=== PATIENT | female | born 1965 | race Two or more races ===

== ENCOUNTER 2025-05-05 12:57 | Emergency (ER) | payer MEDICAID, SELFPAY ==
--- NOTE | ~2025-05-05 | XR_ITS ---
EXAMINATION: XR HAND, RIGHT CLINICAL INFORMATION: right pinky injury. fracture? COMPARISON: None available. TECHNIQUE: PA, lateral, and oblique views of the right hand. FINDINGS: No acute cortical disruption or malalignment. No metallic or radiopaque foreign body. No subcutaneous emphysema. XR/XR hand RT min 3V IMPRESSION: No acute fracture or dislocation. Electronically signed by: Dorian Griffin MD 05/05/2025 01:42 PM EDT
[2025-05-05 13:07] VITALS: BP 205/91; PULSE 84; RESP 16; TEMP 37; O2SAT 99; BMI 24.9
--- NOTE | 2025-05-05 13:11 | ED_ITS ---
HPI - General Adult General Chief complaint: Extremity Problem Stated complaint: pinky inj Time Seen by Provider: 05/05/25 13:54 Source: patient Mode of arrival: ambulatory Limitations: no limitations History of Present Illness ED Provider: Matthew Alejandro HPI narrative: 60 yold female with pmh of DVT on eliquis presents to the ED for right pinky pain for one week. Patient states she hit her finger on the dumpster and ever since it has been bruised and in pain. Patient denies any new trauma, redness, bleeding from any orifices, fever, chills, hotness, or coldness. Related Data Allergies Allergy/AdvReac Type Severity Reaction Status Date / Time No Known Allergies Allergy Verified 05/05/25 13:09 Review of Systems 2 Review of Systems: right pinky pain Yes all other systems are reviewed and are negative [facility] Social History Social History Advance Directives: No Advance Directives Information Provided: Yes Physical Exam ED Vital Signs: Vital Signs - 24 hr 05/05/25 13:07 05/05/25 13:12 Temperature 98.6 F Pulse Rate 84 Respiratory Rate 16 Blood Pressure 205/91 H 162/86 H Pulse Oximetry 99 Oxygen Delivery Method Room Air BMI result Body Mass Index 24.9 Const General: cooperative, healthy appearing, comfortable, no acute distress, well developed, alert, awake and Physically active Orientation/consciousness: patient oriented x3 HENMT Head: Yes normal to inspection, Yes No palpable skull fracture present, Yes normocephalic and Yes atraumatic Eyes General: appearance normal, both eyes and all related structures Neck Neck: Yes normal visual inspection, Yes full ROM, Yes no lymphadenopathy, Yes no meningeal signs, Yes trachea midline, Yes supple, No anterior neck swelling and No tender Chest Chest palpation & inspection: normal inspection of the chest and normal palpation of entire chest wall Resp Effort & Inspection: normal respiratory effort and able to speak in complete sentences Auscultation: clear to auscultation bilaterally Cardio Jugular venous distension: no JVD Heart sounds: S1 normal heart sound present and S2 normal heart sound present GI Inspection: Yes normal to inspection Palpation (GI): Soft to palpation, not firm, nontender, no guarding and not rigid General: Yes no CVA tenderness Back/Spine/Pelvis Back: no CVA tenderness and No back tenderness Skin General skin exam: no rashes or lesions noted, elasticity normal and turgor normal Neuro General: patient oriented x3, gait normal, tone normal, moves all extremities, Normal light touch and pain sensation, no meningeal signs, no focal motor deficits, CN's II-XI intact bilaterally and normal sensation to monofilament Extrem General: Yes normal to inspection, Yes full ROM and Yes capillary refill normal Hand/finger images: 2 1. positive for ecchymosis. negative for crepitus, deformities, redness, pus drainage, or coldness. REst of extremity is normal. Motor, neuro, and vascular exam intact. capillary refill intact. Psych Appearance: grossly normal, well kempt and not disheveled Course Course Course Narrative: RME: 60 yold female presents to the ED for right piinky injury bruising that occurred 1 weeks ago. patient has bruising on ring finger tip. Patient denies any other trauma bruising elsewhere in the body. Patient recently nose with DVT in his on Eliquis. X-ray ordered Medical Decision Making Medical Decision Making MDM Narrative: 60-year-old female presents to ED for fungi bruise after injury and finger on dumpster when week ago with some bruising and pain. Negative for signs of arterial occlusion, compartment syndrome, tenosynovitis, cellulitis, osteomyelitis, necrotizing fasciitis, or any other life-threatening etiology. Initial blood pressure was elevated patient states history of white coat hypertension, to the ED patient was anxious repeat blood pressure significantly improved without any intervention. No indication for cardiac workup, labs, head CT. Not suspecting stroke, ME, or kidney failure. X-ray negative for fracture. Diagnosis contusion. Patient explained worrisome signs informed to return to the ED immediately. Differential Diagnosis Differential Diagnoses: The differential diagnosis associated with the presentation includes (Contusion sprain fracture dislocation) Admission/Observation Consideration of admission/observation: Escalation of care including admission/observation considered Independent Interpretation I performed an independent interpretation of an: Plain X-Ray Radiology Impression Discussion of test interpretation with radiology: I have reviewed the radiologist's reading. Independent Historian Clinical information obtained from an independent historian. History obtained from or confirmed by: Other (patient) Prescription Management I considered prescription management with: Pain Medication Discharge Plan Discharge Clinical Impression: Contusion, Finger sprain Patient Disposition: Home, Self-Care Instructions: Contusion in Adults (ED), Finger Sprain (ED), Bone Bruise (ED) Additional Instructions: X-ray came back negative for fracture. Take [id number] Tylenol for pain relief. Return to the ED immediately for any redness, warmth, coldness, black/blueish discoloration, red streaks, fever, chills, or any other concerning symptoms. Ordering Physician: Matthew Alejandro Date of Service: 05/05/25 Procedure(s): XR hand RT min 3V Accession Number(s): [id number] cc: Matthew Alejandro; Marialuisa Jarvis MD~ Reason for Exam: right pinky injury. fracture? EXAMINATION: XR HAND, RIGHT CLINICAL INFORMATION: right pinky injury. fracture? COMPARISON: None available. TECHNIQUE: PA, lateral, and oblique views of the right hand. FINDINGS: No acute cortical disruption or malalignment. No metallic or radiopaque foreign body. No subcutaneous emphysema. XR/XR hand RT min 3V IMPRESSION: No acute fracture or dislocation. Electronically signed by: Dorian Griffin MD 05/05/2025 01:42 PM EDT Referrals: Marialuisa Jarvis MD [Primary Care Provider, Family Practice] - 2 days Referral Note: Finger sprain contusion Clinical Impression: Contusion; Finger sprain Stand Alone Forms: Work/School Release Discharge Date/Time: 05/05/25 14:26 Print Language: Burkinan
[2025-05-05 13:12] VITALS: BP 162/86
--- OUTSIDE RECORDS SUMMARY | 2025-05-05 17:51 | XMS_ITS | Clinical Summary ---
Author Organization [facility] Address [address] [place] [address] Phone Care Team Providers Care [employer] Helper Name Role Phone Marialuisa Jarvis MD Unavailable [phone] Marialuisa Jarvis MD Primary Care Provider [phone] Encounters Date Type Department Care Team Description 04/18/2025 [facility] RISK SCORES SYSTEM GENERATED External System Generated Encounter [address] [place] [address] Unknown, Unknown, from Last 3 Months Social History Tobacco Use Types Packs/Day Years Used Date Smoking Tobacco: Never Assessed Education Answer Date Recorded Are you interested in more education? Not on lyndsey e 11/15/2022 Are you concerned about learning? Not on file 11/15/2022 No 11/15/2022 No 11/15/2022 Digital Access Answer Date Recorded No 12/16/2022 No 12/16/2022 No 12/16/2022 Reliable internet access at home? Not on file 12/16/2022 Device with a working camera? Not on file Comments Unknown Sex and Gender Information Value Date Recorded Sex Assigned at Not on file Legal Sex Female 9:40 PM EDT Gender Identity Not on file Sexual Orientation Not on file Plan of Treatment Not on file Medical Devices Not on file Insurance [facility] [place] [address] [place] [address] [facility] [facility] Care Teams [employer] Operator Helper Relationship Specialty Start Date End Date Marialuisa Jarvis MD [email or web address] PCP - General Family Medicine 01/16/22 Marialuisa Jarvis MD Primary Care Physician 10/18/17 Additional Source Comments The information contained in this document represents components of the legal health record. It is not the complete legal health record.[facility]
== END 2025-05-05 14:26 | disposition home or self-care (01) ==
PROVIDERS: Emergency Provider Emergency Medicine; PCP Family Medicine
DX: S63.616A Unspecified sprain of right little finger, initial encounter (principal); X58.XXXA Exposure to other specified factors, initial encounter; Y93.9 Activity, unspecified; Y92.9 Unspecified place or not applicable; Y99.8 Other external cause status; Z86.718 Personal history of other venous thrombosis and embolism; Z79.01 Long term (current) use of anticoagulants; Z79.899 Other long term (current) drug therapy
CPT/HCPCS: 73130; 99282; 99283

== ENCOUNTER → 2025-05-05 13:10 | Outpatient (BNV) | payer MEDICAID, SELFPAY | PROVIDERS: Emergency Provider Emergency Medicine; PCP Family Medicine; Visit Provider Radiology Diagnostic Radiology | DX: M79.644 Pain in right finger(s) (principal) | CPT/HCPCS: 73130 ==

== ENCOUNTER 2025-07-12 10:21 | Emergency (ER) | payer MEDICAID, SELFPAY ==
--- NOTE | ~2025-07-12 | CT_ITS ---
EXAMINATION: CT ABDOMEN AND PELVIS WITH CONTRAST CLINICAL INFORMATION: Abdominal bloating COMPARISON: None available. TECHNIQUE: Multidetector volumetric images were obtained from the superior aspect of the liver through the pubic symphysis following administration 85 mL of Omnipaque 350 intravenous contrast. Sagittal and coronal reformatted images were obtained on the technologist's workstation. Oral contrast: No This CT examination was performed using dose optimization techniques as appropriate, variously including the following: *Automated exposure control *Adjustment of mA and/or kV according to patient size (this includes techniques or standardized protocols for targeted exams where dose is matched to indication/reason for exam; i.e. extremities or head) *Use of iterative reconstruction technique FINDINGS: LUNG BASES: Linear scarring or atelectasis is present in the posterior lung bases. LIVER, GALLBLADDER, AND BILIARY TREE: The liver is normal in size, shape, and attenuation. No focal hepatic lesion or biliary ductal dilatation is present. The gallbladder is unremarkable with no evidence of radiopaque gallstones, gallbladder wall thickening, or obvious pericholecystic inflammatory changes. PANCREAS: Unremarkable. SPLEEN: There is a 5 x 10 mm low attenuating lesion involving the anterior superior spleen measures 21 Hounsfield units. ADRENAL GLANDS: Unremarkable. KIDNEYS AND URETERS: The kidneys are normal in size, shape, and attenuation. No hydronephrosis, hydroureter, or calculi seen. No perinephric stranding. BLADDER: Unremarkable. GASTROINTESTINAL TRACT: There is a large amount of ascites. There is a small sliding hiatal hernia involving gastric cardia. Appendix is somewhat obscured but grossly unremarkable. There is stranding of the mesentery anterior and inferior to the central and distal transverse colon. The bowel is decompressed through this segment limiting evaluation for possible thickening. ABDOMINAL WALL: No significant hernia is appreciated. LYMPH NODES: Normal. VASCULAR: Minimal atherosclerotic calcifications are present in the abdominal aorta PELVIC VISCERA: There is a 17 x 26 mm mass in the uterine body likely representing a leiomyoma. The endometrial stripe measures 16 mm versus fluid in the endometrial canal. Ovaries are unremarkable. OSSEOUS STRUCTURES: L4-5 demonstrates disc bulge, endplate sclerosis and osteophytes. No lytic or blastic lesions are identified. CT/CT abdomen pelvis w IV con IMPRESSION: There is a large amount of ascites, the origin is uncertain. The endometrium within the uterus appears prominent measuring up to 16 mm thick. Endometrial hyperplasia, polyp, or carcinoma is not ruled out. There could also be fluid in the endometrial canal. Additionally, there is a 17 x 26 mm mass in the uterine body that likely represents a leiomyoma, other etiologies are not ruled out. There is stranding of the mesentery anterior and inferior to the mid and distal transverse colon. The colon is decompressed in this region limiting evaluation of the bowel wall thickness. Infection, ischemia, inflammatory bowel disease, and neoplasm are not excluded. There is a small sliding hiatal hernia involving gastric cardia. There is a 5 x 10 mm low attenuating lesion in the anterior superior spleen. Most lesions and spleen are nonaggressive. Fleischner guidelines were followed. Electronically signed by: Walter Hampton MD 07/12/2025 03:09 PM PAUL[facility] YAD[facility]
[2025-07-12 10:27] VITALS: BP 180/102; PULSE 107; RESP 18; TEMP 36.3; O2SAT 98; BMI 24.0
--- NOTE | 2025-07-12 10:37 | ED_ITS ---
HPI - General Adult General Chief complaint: General Medical Stated complaint: Bloating In Stomach, Throwing Up, Abd Pain Time Seen by Provider: 07/12/25 14:12 Source: patient and family () Mode of arrival: ambulatory Limitations: no limitations History of Present Illness ED Provider: CRISTAL MOORE PA-C HPI narrative: 60 year old female with recent unprovoked LLE DVT on AC, HLD, hypothyroidism presents to the ED today for evaluation of abdominal bloating x2 weeks. Patient states she was started on Eliquis 2 months ago for a left lower extremity DVT. Approximately 30 days after started Eliquis, she began to develop abdominal bloating/discomfort. She was concerned that this was related to the Eliquis. She saw her PCP who then switched her from Eliquis to Xarelto. She has been taking Xarelto as prescribed since 07/07/2025 without much improvement in her bloating. Reports recent constipation. Admits to small, watery BM yesterday however prior to this had not had a BM in 3 days. Reports history of section x1. No other abdominal surgeries. Denies fever, chills, chest pain, SOB, palpitations, N/V, urinary sx. Related Data Home Medications ?Medication ?Instructions ?Recorded ?Confirmed atorvastatin 80 mg tablet 80 mg PO DAILY 07/13/25 levothyroxine 100 mcg tablet 100 mcg PO QAM 07/13/25 loratadine 10 mg tablet 10 mg PO QAM 07/13/25 rivaroxaban 15 mg tablet (Xarelto) 15 mg PO DAILY 06/21 11/12 triamcinolone acetonide 0.1 % appl topical BID 5 topical cream Previous Rx's ?Medication ?Instructions ?Recorded spironolactone 100 mg tablet 100 mg PO DAILY 14 days # 14 tabs 07/12/25 Allergies Allergy/AdvReac Type Severity Reaction Status Date / Time No Known Allergies Allergy Verified 07/13/25 11:44 Review of Systems 2 Review of Systems: Yes all other systems are reviewed and are negative [facility] Past Medical History Attestation statement: The following information was validated with the patient. Source: old records reviewed and nursing notes reviewed Medical History (Updated 07/13/25 @ 11:47 by Kaitlin Montero CMA) Hypothyroidism Hyperlipidemia Surgical History (Updated 12/24/25 @ 11:47 by Kaitlin Montero CMA) Hx of section Family History Family History (Updated 07/13/25 @ 11:48 by Kaitlin Montero CMA) Mother Diabetes Brother Thyroid cancer Social History Social History (Updated 07/13/25 @ 11:49 by Kaitlin Montero CMA) Household Members: Spouse Housing: Apartment Alcohol intake: former Patient Tobacco Use Status: Former Tobacco user Tobacco use type: Cigarette Years Smoked: 3 Current occupational status: disabled Sexual orientation: Straight/Heterosexual Gender identity: Female Physical Exam ED Vital Signs: Vital Signs - 24 hr 07/12/25 17:05 Temperature 98.2 F Pulse Rate 93 Respiratory Rate 16 Blood Pressure 156/96 H Pulse Oximetry 98 Oxygen Delivery Method Room Air BMI result Body Mass Index 24.0 hypertensive, mildly tachycardic to 107, vitals are otherwise wnl General: Well appearing, in no acute distress. Skin: Warm, dry, intact. No rashes or lesions. Head: Normocephalic, atraumatic. EENT: Hearing is intact b/l. PERRLA. EOM intact. Moist mucous membranes.? Neck: Supple without LAD Cardiac: Chest wall symmetric. RRR Lungs: Normal respiratory effort without accessory muscle use. CTA bilaterally Abdomen: soft, distended, somwhat ascitic appearing abdomen, nontender to palpation, no rebound tenderness or guarding. Active bowel sounds x4. No CVAT bilaterally. Back: No midline spinous or paraspinal tenderness. No step off deformity. Ext: Upper and lower extremities atraumatic, without tenderness, deformity, swelling or erythema. Full ROM throughout Neuro: AOx3. Normal speech. Ambulating with steady gait. Course Course Course Narrative: RmE: 60 yold female on now on xerolto for leg DVT presents to the ED for abdominal pain bloating and distended firm abdomen. patient states she was previously constipated, but that resolved and abdomen is still bloated. Reevaluation(s) Reevaluation #1: 1550 -- CBC without leukocytosis. There is neutrophil predominance. No anemia, H and H stable. Chemistry without acute electrolyte abnormality requiring intervention. No BRENNAN. Random glucose 156, no anion gap. AST/ALT mildly elevated, liver function otherwise WNL. Lipase WNL. Urine without infection. CT abdomen/pelvis showing numerous abnormal findings: I have concern that patient's ascites may be secondary to possible carcinoma. Will reach out to both GI and Gynecology. I suspect patient may require a diagnostic paracentesis. Awaiting response. 1627 -- I spoke with Dr. Draper from GI with recommendation for diagnostic paracentesis with fluid analysis of albumin, cell count and cytology. I also spoke with OBGYN Dr. Ltaif who recommends close follow up appointment in his office for endometrial sampling via endometrial biopsy or hysteroscopy D&C a/polypectomy/myomectomy. 1450 -- Cannot perform diagnostic paracentesis as patient is anticoagulated on xarelto. Discussed with Dr. Draper - given recent unprovoked DVT, cancer is even higher up on the differential. Dr. Draper recommends starting patient on spironolactone 100 mg daily until she is able to follow up with her primary care provider for further workup/management. Patient's she does not endorse feeling short of breath, she is not hypoxic and she denies any pain at this time. I do not feel she needs a therapeutic paracentesis. No concern for SBP. > discussed with patient and her who is at bedside. They verbalized understanding of the situation and the fact that cancer can not be definitively ruled out at this time. They will be contacting her PCP tomorrow morning along with Dr. Latif for outpatient follow up. Referrals provided. > advised to continue home medications as prescribed. Patient has remained stable throughout ED visit today. Discussed worrisome signs and symptoms and when to return to the ED. All questions answered at this time. Patient is agreeable with disposition and stable for discharge. Medications Administered Discontinued Medications Generic Name Dose Route Start Last Admin Trade Name Freq PRN Reason Stop Dose Admin Iohexol 100 ml 07/12/25 14:41 07/12/25 14:44 Iohexol 350 Mg/Ml 100 Ml Infus..Btl IV 07/12/25 14:42 85 ml ONCE ONE Administration Medical Decision Making Medical Decision Making MDM Narrative: 60 year old female with recent LLE DVT on AC, HLD, hypothyroidism presents to the ED today for evaluation of abdominal bloating x2 weeks. Mildly hypertensive, tachycardic, not hypoxic or febrile. on exam, soft, distended, somwhat ascitic appearing abdomen, nontender to palpation, no rebound tenderness or guarding. Active bowel sounds x4. No CVAT bilaterally. Differential diagnosis includes constipation, SBO, diverticulosis, diverticulitis, ascites, cancer Plan for labs, CT, re-evaluation. Denying an pain at present will hold on meds. Differential Diagnosis Differential Diagnoses: The differential diagnosis associated with the presentation includes as above. Admission/Observation Not indicated Consult Healthcare Provider Management of the patient was discussed with: Makeup Sales Advisor GI - Dr. Jose MOBLEY - Dr. Latif Lab Data MDM Lab Attestation statement: I reviewed the patient's lab results. as above. 07/12/25 10:54 07/12/25 10:54 Labs: Lab Results 07/12/25 07/12/25 Range/Units 10:54 10:55 WBC 10.4 (4.8-10.8) X10*3/uL RBC 4.50 (4.20-5.50) X10*6/uL Hgb 12.1 (12.0-16.0) g/dl Hct 37.5 (37.0-47.0) % MCV 83.3 (80.0-98.0) fL MCH 26.9 L (27.0-33.0) pg MCHC 32.3 (31.0-35.0) g/dl RDW 14.2 (11.0-16.0) % Plt Count 110 L (160-400) X10*3/uL MPV 11.2 (9.4-12.3) fL Immature Gran % (Auto) 0.3 (0.0-0.4) % Neut % (Auto) 80.0 H (45-73) % Lymph % (Auto) 11.5 L (20-40) % Menard % (Auto) 6.0 (2-11) % Eos % (Auto) 1.4 (0-4) % Baso % (Auto) 0.8 (0-2) % Lymph # (Auto) 1.2 (1.2-4.9) X10*3/uL [place] # (Auto) 0.6 (0.1-1.2) X10*3/uL Eos # (Auto) 0.2 (0.0-0.4) X10*3/uL Baso # (Auto) 0.1 (0.0-0.2) X10*3/uL Abs Immat Gran (auto) 0.03 (0.00-0.03) X10*3/uL Absolute Neuts (auto) 8.3 (2.0-8.3) x10*3/uL Absolute Nucleated RBC 0.000 (0.0-0.012) X10*3/uL Nucleated RBC % (auto) 0.0 (0.0-0.2) /100WBC Smear Tech's Comments VERIFIED PT 16.6 H (11.2-13.5) SEC INR 1.4 H (0.9-1.1) APTT 26.1 L (26.7-34.1) SEC Sodium 142 (135-145) mmol/L Potassium 3.7 (3.3-5.1) mmol/L Chloride 108 (96-108) mmol/L Carbon Dioxide 26 (22-29) mmol/L Anion Gap 12 (12-20) BUN 14 (9-16) mg/dL Creatinine 0.90 (0.5-1.4) mg/dL Estim Creat Clear Calc 63.0 Estimated GFR > 60 Random Glucose 156 H (60-115) mg/dL Calcium 9.5 (8.4-10.2) mg/dL Total Bilirubin 0.4 (0.0-1.0) mg/dL AST 42 H (5-31) U/L ALT 43 H (0-31) U/L Alkaline Phosphatase 105 (39-117) U/L Total Protein 7.2 (6.5-8.0) g/dL Albumin 4.6 (3.5-5.0) g/dL Lipase 18 (8-78) U/L Urine Color Yellow Urine Appearance Clear Urine pH 5.5 (5.0-9.0) Ur Specific [place] 1.010 (1.005-1.025) Urine Protein Negative (Neg-Trace) mg/dL Urine Glucose (UA) Negative (Negative) mg/dL Urine Ketones Negative (Negative) mg/dL Urine Blood Negative (Negative) Urine Nitrite Negative (Negative) Ur Leukocyte Esterase Negative (Negative) Independent Interpretation I performed an independent interpretation of an: CT Scan Interpretation: ct a/p without bowel obstruction Radiology Impression Discussion of test interpretation with radiology: I have reviewed the radiologist's reading. Radiologist Impression: Procedure(s): CT abdomen pelvis w IV con Accession Number(s): [id number] cc: Marialuisa Jarvis MD; Cristal Moore~ Report Number: [id number]: Total DLP = 490.00 mGy-cm Reason for Exam: abd bloating EXAMINATION: CT ABDOMEN AND PELVIS WITH CONTRAST CLINICAL INFORMATION: Abdominal bloating COMPARISON: None available. TECHNIQUE: Multidetector volumetric images were obtained from the superior aspect of the liver through the pubic symphysis following administration 85 mL of Omnipaque 350 intravenous contrast. Sagittal and coronal reformatted images were obtained on the technologist's workstation. Oral contrast: No This CT examination was performed using dose optimization techniques as appropriate, variously including the following: *Automated exposure control *Adjustment of mA and/or kV according to patient size (this includes techniques or standardized protocols for targeted exams where dose is matched to indication/reason for exam; i.e. extremities or head) *Use of iterative reconstruction technique FINDINGS: LUNG BASES: Linear scarring or atelectasis is present in the posterior lung bases. LIVER, GALLBLADDER, AND BILIARY TREE: The liver is normal in size, shape, and attenuation. No focal hepatic lesion or biliary ductal dilatation is present. The gallbladder is unremarkable with no evidence of radiopaque gallstones, gallbladder wall thickening, or obvious pericholecystic inflammatory changes. PANCREAS: Unremarkable. SPLEEN: There is a 5 x 10 mm low attenuating lesion involving the anterior superior spleen measures 21 Hounsfield units. ADRENAL GLANDS: Unremarkable. KIDNEYS AND URETERS: The kidneys are normal in size, shape, and attenuation. No hydronephrosis, hydroureter, or calculi seen. No perinephric stranding. BLADDER: Unremarkable. GASTROINTESTINAL TRACT: There is a large amount of ascites. There is a small sliding hiatal hernia involving gastric cardia. Appendix is somewhat obscured but grossly unremarkable. There is stranding of the mesentery anterior and inferior to the central and distal transverse colon. The bowel is decompressed through this segment limiting evaluation for possible thickening. ABDOMINAL WALL: No significant hernia is appreciated. LYMPH NODES: Normal. VASCULAR: Minimal atherosclerotic calcifications are present in the abdominal aorta PELVIC VISCERA: There is a 17 x 26 mm mass in the uterine body likely representing a leiomyoma. The endometrial stripe measures 16 mm versus fluid in the endometrial canal. Ovaries are unremarkable. OSSEOUS STRUCTURES: L4-5 demonstrates disc bulge, endplate sclerosis and osteophytes. No lytic or blastic lesions are identified. CT/CT abdomen pelvis w IV con IMPRESSION: There is a large amount of ascites, the origin is uncertain. The endometrium within the uterus appears prominent measuring up to 16 mm thick. Endometrial hyperplasia, polyp, or carcinoma is not ruled out. There could also be fluid in the endometrial canal. Additionally, there is a 17 x 26 mm mass in the uterine body that likely represents a leiomyoma, other etiologies are not ruled out. There is stranding of the mesentery anterior and inferior to the mid and distal transverse colon. The colon is decompressed in this region limiting evaluation of the bowel wall thickness. Infection, ischemia, inflammatory bowel disease, and neoplasm are not excluded. There is a small sliding hiatal hernia involving gastric cardia. There is a 5 x 10 mm low attenuating lesion in the anterior superior spleen. Most lesions and spleen are nonaggressive. Fleischner guidelines were followed. Electronically signed by: Walter Hampton MD 07/12/2025 03:09 PM [facility] [place] Clinical information obtained from an independent historian. History obtained from or confirmed by: Spouse External Record Review External record reviewed: Inpatient record Prescription Management I considered prescription management with: Other (Spironolactone) Chronic Conditions Patient?s care impacted by: Other (DVT) Social Determinants Patient?s care significantly limited by Social Determinants of Health including: Other Social Determinant of Health Critical Care Time Critical Care Time Critical Care Time: No Discharge Plan Discharge Clinical Impression: Ascites, Thickened endometrium Patient Disposition: Home, Self-Care Instructions: Ascites (ED) Additional Instructions: You were evaluated in the ED today for abdominal bloating. Your blood work is reassuring. The CT scan of your abdomen revealed numerous abnormal findings. I have attached the impression below. As discussed, there is a large amount of fluid in your abdomen. The cause of this is unknown. There appears to be thickening of your her uterine wall along with stranding of the wall of your colon. These findings are concerning for cancer. Given your recent unprovoked blood clot, cancer is even higher up on the possible causes. I spoke with a GI doctor and the behavior management specialist. They are both recommending outpatient follow up. Please follow up with your primary care provider for further workup of the fluid in your abdomen. Call their office tomorrow morning to schedule an appointment. For now, I am starting you on a medication that will help you pee out the fluid. Spironolactone has been sent to your pharmacy - take this as prescribed until you are able to follow up with your PCP. I want you to follow up with the behavior management specialist - Dr. Latif. I have provided you with a referral to his office. They will be able to obtain a biopsy of the uterus and provide you with various treatment options. Please contact their office to schedule an appointment. They will not call you. Continue all home medications as prescribed. Return with any new or worsening symptoms such as fever, chills, increasing abdominal pain/distension, difficulty breathing, shortness of breath. In case of an emergency call 911. IMPRESSION: There is a large amount of ascites, the origin is uncertain. The endometrium within the uterus appears prominent measuring up to 16 mm thick. Endometrial hyperplasia, polyp, or carcinoma is not ruled out. There could also be fluid in the endometrial canal. Additionally, there is a 17 x 26 mm mass in the uterine body that likely represents a leiomyoma, other etiologies are not ruled out. There is stranding of the mesentery anterior and inferior to the mid and distal transverse colon. The colon is decompressed in this region limiting evaluation of the bowel wall thickness. Infection, ischemia, inflammatory bowel disease, and neoplasm are not excluded. There is a small sliding hiatal hernia involving gastric cardia. There is a 5 x 10 mm low attenuating lesion in the anterior superior spleen. Most lesions and spleen are nonaggressive. Prescriptions: New spironolactone 100 mg tablet 100 mg PO DAILY 14 Days Qty: 14 0RF No Action atorvastatin 80 mg tablet 80 mg PO DAILY triamcinolone acetonide 0.1 % cream topical BID levothyroxine 100 mcg tablet 100 mcg PO QAM loratadine 10 mg tablet 10 mg PO QAM Xarelto 15 mg tablet 15 mg PO DAILY Referrals: Marialuisa Jarvis MD [Primary Care Provider, Family Practice] Referral Note: ascites - cancer work up. Karsten Latif MD [Physician, [facility]] Referral Note: The endometrium within the uterus appears prominent measuring up to 16 mm thick. Endometrial hyperplasia, polyp, or carcinoma is not ruled out. There could also be fluid in the endometrial canal. Additionally, there is a 17 x 26 mm mass in the uterine body that likely represents a leiomyoma, other etiologies are not ruled out. Interventions: ED Discharge Assessment Last Done: 07/12/25 17:05 Discharge Date/Time: 07/12/25 17:06 Print Language: Tajik
[2025-07-12 11:03] LABS: Appearance Urine Clear; Glucose Urine UA Negative (Negative); PH 5.5 (5.0-9.0); Specific Gravity - Urine 1.010 (1.005-1.025)
[2025-07-12 11:07] LABS: INTERNATIONAL NORM RATIO 1.4 (0.9-1.1); Prothrombin Time 16.6 SEC (11.2-13.5)
[2025-07-12 11:10] LABS: Hematocrit 37.5 % (37.0-47.0); Hemoglobin 12.1 g/dl (12.0-16.0); Imm Gran Abs Auto 0.03 X10*3/uL (0.00-0.03); Imm Gran Pct Auto 0.3 % (0.0-0.4); Lymphocytes Absolute Auto 1.2 X10*3/uL (1.2-4.9); Mean Corpuscular HGB Conc 32.3 g/dl (31.0-35.0); Mean Corpuscular Hemoglobin 26.9 pg (27.0-33.0); Mean Corpuscular Volume 83.3 fL (80.0-98.0); NRBC Abs Auto 0.000 X10*3/uL (0.0-0.012); NRBC Pct Auto 0.0 /100WBC (0.0-0.2); Partial Thromboplastin Time 26.1 SEC (26.7-34.1); Red Blood Count 4.50 X10*6/uL (4.20-5.50); White Blood Count 10.4 X10*3/uL (4.8-10.8)
[2025-07-12 11:21] LABS: Alanine Aminotransferase 43 U/L (0-31); Albumin Level 4.6 g/dL (3.5-5.0); Alkaline Phosphatase 105 U/L (39-117); Anion Gap 12 (12-20); Aspartate Amino Transferase 42 U/L (5-31); Blood Urea Nitrogen 14 mg/dL (9-16); Calcium 9.5 mg/dL (8.4-10.2); Carbon Dioxide 26 mmol/L (22-29); Chloride 108 mmol/L (96-108); Creatinine Clr Calc Pharmacy 63.0; Estimated Glomerular Filt Rate > 60; Lipase 18 U/L (8-78); Potassium 3.7 mmol/L (3.3-5.1); Sodium 142 mmol/L (135-145); Total Protein 7.2 g/dL (6.5-8.0)
[2025-07-12 11:22] LABS: MANUAL DIFF FLAG SCAN; Platelet Count 110 X10*3/uL (160-400)
[2025-07-12 14:21] VITALS: BP 156/96; PULSE 93; RESP 16; TEMP 36.8; O2SAT 98
--- NOTE | 2025-07-12 14:21 | PC.NURSE ---
pT a&o x4 vss STATES FEELING BETTER- LESS BLAOTED. NAD NO COMPLAINTS
[2025-07-12] MEDS: iohexoL 350 MG/ML 100 ML INFUS..BTL IV (14:44)
--- OUTSIDE RECORDS SUMMARY | 2025-07-12 14:58 | XMS_ITS | Clinical Summary ---
Author Organization [facility] Address [address] [place] [address] Phone Care Team Providers Care Telecom Billing Analyst Name Role Phone Marialuisa Jarvis MD Unavailable Marialuisa Jarvis MD Primary Care Provider Marialuisa Jarvis MD Unavailable Encounters Date Type Department Care Team Description 05/05/2025 [facility] RISK SCORES SYSTEM GENERATED External System Generated Encounter [address] [place] [id number] Unknown, Unknown, 04/18/2025 [facility] RISK SCORES SYSTEM GENERATED External System Generated Encounter [address] [place] [id number] Unknown, Unknown, from Last 3 Months Social [...] file Medical Devices Not on file Insurance [facility] [facility] [place] Care Teams Telecom Billing Analyst Relationship Specialty Start Date End Date Marialuisa Jarvis MD PCP - General Family Medicine 01/16/22 Marialuisa Jarvis MD Primary Care Physician 10/18/17 Marialuisa Jarvis MD [address] [place] [phone] Insurance Assigned Provider 06/04/25 Additional Source Comments The information contained in this document represents components of the legal health record. It is not the complete legal health record.[facility]
--- NOTE | 2025-07-12 15:27 | PC.NURSE ---
assumed care of pt at 1500. report received from Stephenie JEWELL.
--- NOTE | 2025-07-12 16:03 | P.CONOB_ITS ---
ELECTRICAL AND INSTRUMENT MECHANIC - CN: HPI Data of Consult Consult date: 07/12/25 Primary Care Provider: Marialuisa Jarvis MD Consult Narrative Narrative: I was consulted on Oliva Lester is a 60 year old female with recent LLE DVT on Anticoagulation, presenting to the emergency room complaining of abdominal bloating x2 weeks duration Denies fever, chills, chest pain, SOB, palpitations, N/V, urinary sx. The following workup was done in the emergency room: White count 10.4, H&H 12.4/37.5 AST/ALT 42/[address] scan of abdomen and pelvis showed the following: PELVIC VISCERA: There is a 17 x 26 mm mass in the uterine body likely representing a leiomyoma. The endometrial stripe measures 16 mm versus fluid in the endometrial canal. Ovaries are unremarkable. OSSEOUS STRUCTURES: L4-5 demonstrates disc bulge, endplate sclerosis and osteophytes. No lytic or blastic lesions are identified. CT/CT abdomen pelvis w IV con IMPRESSION: There is a large amount of ascites, the origin is uncertain. The endometrium within the uterus appears prominent measuring up to 16 mm thick. Endometrial hyperplasia, polyp, or carcinoma is not ruled out. There could also be fluid in the endometrial canal. Additionally, there is a 17 x 26 mm mass in the uterine body that likely represents a leiomyoma, other etiologies are not ruled out. There is stranding of the mesentery anterior and inferior to the mid and distal transverse colon. The colon is decompressed in this region limiting evaluation of the bowel wall thickness. Infection, ischemia, inflammatory bowel disease, and neoplasm are not excluded. There is a small sliding hiatal hernia involving gastric cardia. There is a 5 x 10 mm low attenuating lesion in the anterior superior spleen. Most lesions and spleen are nonaggressive. cc:: CC: OB [facility] Social History Social History Advance Directives: No Advance Directives Information Provided: Yes Meds Allergies Allergy/AdvReac Type Severity Reaction Status Date / Time No Known Allergies Allergy Verified 07/12/25 10:34 ELECTRICAL AND INSTRUMENT MECHANIC Physical Exam Vitals Vital signs: Temp Pulse Resp BP Pulse Ox O2 Del Method 98.2 F 93 16 156/96 H 98 Room Air 07/12/25 14:21 07/12/25 14:21 07/12/25 14:21 07/12/25 14:21 07/12/25 14:21 07/12/25 14:21 BMI result Body Mass Index 24.0 ELECTRICAL AND INSTRUMENT MECHANIC - Results Labs 07/12/25 10:54 07/12/25 10:54 Labs: Short CBC 07/12/25 Range/Units 10:54 WBC 10.4 (4.8-10.8) X10*3/uL Hgb 12.1 (12.0-16.0) g/dl Hct 37.5 (37.0-47.0) % Plt Count 110 L (160-400) X10*3/uL BMP 07/12/25 10:54 Sodium 142 Potassium 3.7 Chloride 108 Carbon Dioxide 26 BUN 14 Creatinine 0.90 Calcium 9.5 Liver Function 07/12/25 Range/Units 10:54 Total Bilirubin 0.4 (0.0-1.0) mg/dL AST 42 H (5-31) U/L ALT 43 H (0-31) U/L Alkaline Phosphatase 105 (39-117) U/L Albumin 4.6 (3.5-5.0) g/dL Urine 07/12/25 Range/Units 10:55 Urine Color Yellow Urine Appearance Clear Urine pH 5.5 (5.0-9.0) Ur Specific [place] 1.010 (1.005-1.025) Urine Protein Negative (Neg-Trace) mg/dL Urine Glucose (UA) Negative (Negative) mg/dL Imaging CT scan - pelvis: Radiologist's impression: ITS Impressions Abdomen/Pelvis CT 07/12/25 14:38 IMPRESSION: There is a large amount of ascites, the origin is uncertain. The endometrium within the uterus appears prominent measuring up to 16 mm thick. Endometrial hyperplasia, polyp, or carcinoma is not ruled out. There could also be fluid in the endometrial canal. Additionally, there is a 17 x 26 mm mass in the uterine body that likely represents a leiomyoma, other etiologies are not ruled out. There is stranding of the mesentery anterior and inferior to the mid and distal transverse colon. The colon is decompressed in this region limiting evaluation of the bowel wall thickness. Infection, ischemia, inflammatory bowel disease, and neoplasm are not excluded. There is a small sliding hiatal hernia involving gastric cardia. There is a 5 x 10 mm low attenuating lesion in the anterior superior spleen. Most lesions and spleen are nonaggressive. Fleischner guidelines were followed. Electronically signed by: Walter Hampton MD 07/12/2025 03:09 PM [facility] [place] Assessment and Plan (1) Ascites: Status: Acute Will defer the management to the emergency room providers (2) Thickened endometrium: Status: Acute CT scan showed Thickened endometrium with fluid in the endometrial cavity, the differential diagnosis includes but not limited to endometrial hyperplasia and/or malignancy or a polyp. Recommend outpatient endometrial sampling via endometrial biopsy in the office or hysteroscopy D&C / polypectomy/myomectomy. Instructions to be given to the patient to schedule a close up appointment in the office for further management (3) Uterine myoma: Status: Acute CT scan shows uterine mass, the differential diagnosis, includes leiomyoma versus leiomyosarcoma. Recommended short-term follow-up for Outpatient management. I spent a total of 20 minutes reviewing the chart, talking to the patient via video and documenting in the medical record.
[2025-07-12 17:05] VITALS: BP 156/96; PULSE 93; RESP 16; TEMP 36.8; O2SAT 98
== END 2025-07-12 17:06 | disposition home or self-care (01) ==
PROVIDERS: Physician Assistant; Emergency Provider Emergency Medicine; PCP Family Medicine
DX: R18.8 Other ascites (principal); R10.9 Unspecified abdominal pain; D25.9 Leiomyoma of uterus, unspecified; R93.89 Abnormal findings on diagnostic imaging of other specified body structures; I10 Essential (primary) hypertension; Z86.718 Personal history of other venous thrombosis and embolism; Z79.01 Long term (current) use of anticoagulants; Z79.899 Other long term (current) drug therapy
CPT/HCPCS: 36415; 74177; 80053; 81003; 83690; 85025; 85610; 85730; 99283; 99285; Q9967

== ENCOUNTER → 2025-07-12 13:46 | Outpatient (BNV) | payer MEDICAID, SELFPAY | PROVIDERS: Emergency Provider Emergency Medicine; PCP Family Medicine; Visit Provider Obstetrics & Gynecology | DX: R18.8 Other ascites (principal); R93.89 Abnormal findings on diagnostic imaging of other specified body structures; D25.9 Leiomyoma of uterus, unspecified | CPT/HCPCS: 99283 ==

== ENCOUNTER → 2025-07-12 14:30 | Outpatient (BNV) | payer MEDICAID, SELFPAY | PROVIDERS: Emergency Provider Emergency Medicine; PCP Family Medicine; Visit Provider Radiology Diagnostic Radiology | DX: K44.9 Diaphragmatic hernia without obstruction or gangrene (principal); R18.8 Other ascites | CPT/HCPCS: 74177 ==

== ENCOUNTER 2025-07-13 11:38 | Outpatient (REF) | payer MEDICAID, SELFPAY | END 2025-07-13 11:39 | disposition home or self-care (01) | LOC: HO.LNP 11:38 | PROVIDERS: PCP Family Medicine; Visit Provider Obstetrics & Gynecology | DX: R93.89 Abnormal findings on diagnostic imaging of other specified body structures (principal); D25.9 Leiomyoma of uterus, unspecified; R18.8 Other ascites; Z12.11 Encounter for screening for malignant neoplasm of colon; Z12.31 Encounter for screening mammogram for malignant neoplasm of breast | CPT/HCPCS: 58100; 87626; 88175; 88305; 88341; 88342; 88360; 99212 ==

== ENCOUNTER 2025-07-13 11:38 | Outpatient (AMB) | payer MEDICAID, SELFPAY ==
--- NOTE | 2025-07-13 11:40 | MHC.OFFVIS ---
Vital Signs 07/13/25 11:43 Height 5 ft 6 in Weight 145 lb BMI 23.4 BP 154/100 H Intake Visit Reasons: ED f/u Engineer Operations And Maintenance Required: Yes Engineer Operations And Maintenance Language: Boat Oar Maker Services: Engineer Operations And Maintenance Present (in person) Information Interpreted: non-clinical & clinical Director Index: Director Index Present (Kaitlin CASIANO) Accompanied by: Spouse Allergies No Known Allergies Allergy (Verified 07/13/25 11:44) Post menopausal: Yes HPI Comments Details: Presenting as a ED follow-up. The patient is a 60 year old female with recent LLE DVT on Anticoagulation, presented yesterday to the emergency room complaining of abdominal bloating x2 weeks duration. No history of vaginall bleeding The following workup was done in the emergency room: White count 10.4, H&H 12.4/37.5 AST/ALT 42/[address] scan of abdomen and pelvis showed the following: PELVIC VISCERA: There is a 17 x 26 mm mass in the uterine body likely representing a leiomyoma. The endometrial stripe measures 16 mm versus fluid in the endometrial canal. Ovaries are unremarkable. OSSEOUS STRUCTURES: L4-5 demonstrates disc bulge, endplate sclerosis and osteophytes. No lytic or blastic lesions are identified. CT/CT abdomen pelvis w IV con IMPRESSION: There is a large amount of ascites, the origin is uncertain. The endometrium within the uterus appears prominent measuring up to 16 mm thick. Endometrial hyperplasia, polyp, or carcinoma is not ruled out. There could also be fluid in the endometrial canal. Additionally, there is a 17 x 26 mm mass in the uterine body that likely represents a leiomyoma, other etiologies are not ruled out. There is stranding of the mesentery anterior and inferior to the mid and distal transverse colon. The colon is decompressed in this region limiting evaluation of the bowel wall thickness. Infection, ischemia, inflammatory bowel disease, and neoplasm are not excluded. There is a small sliding hiatal hernia involving gastric cardia. There is a 5 x 10 mm low attenuating lesion in the anterior superior spleen. Most lesions and spleen are nonaggressive. No previous screening colonoscopy No recent mammogram or Co testing PFSH Medical History (Updated 07/13/25 @ 11:47 by Kaitlin Montero CMA) Hypothyroidism Hyperlipidemia Surgical History (Updated 07/13/25 @ 11:47 by Kaitlin Montero CMA) Hx of section Family History (Updated 07/13/25 @ 11:48 by Kaitlin Montero CMA) Mother Diabetes Brother Thyroid cancer Social History Household Members: Spouse Housing: Apartment Alcohol intake: former Patient Tobacco Use Status: Former Tobacco user Tobacco use type: Cigarette Years Smoked: 3 Current occupational status: disabled Sexual orientation: Straight/Heterosexual Gender identity: Female Female Reproductive History Menstrual control method: permanent sterilization Menopause type: natural Total pregnancies: 1 Full term: 1 Number of Living Children: 1 Review of Systems Const All systems reviewed & are unremarkable except as noted in HPI and below Card Reports as per HPI Resp Reports as per HPI GI Reports as per HPI and Reports no additional complaints Reports as per HPI Physical Exam Const General: cooperative, healthy appearing and comfortable Chest Chest palpation & inspection: normal inspection of the chest and normal palpation of entire chest wall Breast/axilla inspection: normal inspection of the breasts and normal inspection of the axillae Breast/axilla palpation: normal palpation of the breasts, normal palpation of the axillae and no axillary lymphadenopathy Resp Effort & Inspection: normal respiratory effort Auscultation: clear to auscultation bilaterally Percussion: percussion normal Cardio Palpation: normal PMI Rate: regular rate Rhythm: regular rhythm Heart sounds: no murmurs and no rubs Peripheral pulses: Peripheral pulses 2+ throughout GI Inspection: Yes normal to inspection Palpation (GI): Soft to palpation, nontender, no guarding, not rigid and No hepatosplenomegaly present Percussion: Yes normal to percussion Auscultation: normal bowel sounds Rectal Exam - Female: deferred General: Yes bladder normal to palpation External Female Exam: No lesion Speculum Exam - Vagina: normal appearance of the vagina, normal palpation, normal vaginal discharge and not erythematous Speculum Exam - Cervix: normal appearance of the cervix and normal palpation Bimanual exam- vagina & uterus: normal bimanual exam, normal palpation, uterine size normal, bladder normal to palpation, consistency normal and normal palpation Bimanual Exam- Adnexa, other: normal adnexae, no masses and no tenderness Office Procedures Endometrial Biopsy Details: The patient was counseled regarding the indication and benefits of endometrial sampling to rule out endometrial pathology including not limited to endometrial hyperplasia or endometrial cancer and others; The alternatives (Either do nothing vs. hysteroscopy D&C) & the risks were discussed with the patient including but not limited: pain, uterine perforation, bleeding, infection, possible injury to bladder, bowel, ureter, possible need for blood transfusion with all its possible risks. The patient verbalized understanding all questions answered and signed consent. The patient was placed into the dorsal lithotomy position; a speculum was inserted in the vagina. Using aseptic technique for the procedure, the cervix was cleansed with Betadine. The anterior lip of the cervix was grasped with a single tooth tenaculum. The uterus was sounded to 7 cm with a 4 mm Pipelle was used. Tissues samples were obtained and placed in formalin, in a patient labeled container and sent to the pathology department. At the end of the procedure, there was minimal bleeding noted The patient tolerated the procedure well and was discharged in good condition with the following instructions: Nothing in the vagina until the bleeding stops. No sex until the bleeding stops, to call if any of the following occurs: fever (>100.4), flu-like symptoms, abdominal pain, heavy bleeding, four smelling vaginal discharge. The patient was instructed to schedule a Follow up appointment in 2 weeks to discuss pathology results of the biopsy and treatment options. This note was generated with a voice recognition program. Some errors may have been overlooked during the review of this note. Sometimes these errors may affect the content or meaning of a given sentence. [id number] Biopsy Assessment & Plan Assessment & Plan (1) Thickened endometrium: Code(s): R93.89 - Abnormal findings on diagnostic imaging of other specified body structures Category: Medical Plan: Co testing done. Screening mammogram ordered. Discussed with the patient the finding of thickened endometrium and fluid in the endometrial cavity, in spite of no vaginal bleeding the concern is the endometrial fluid visualized on ultrasound in case of cervical stenosis might be bleeding into the endometrial cavity and the blood and/or tissue was are unable to pass through the cervical os. Endometrial sampling in postmenopausal bleeding with endometrial fluid is indicated in case endometrial thickness is above 4 mm, the differential diagnosis includes but not limited to endometrial hyperplasia and/or malignancy or polyps. EMB done, see procedure. Instructions given the patient to schedule a 2 week follow-up appointment (2) Uterine myoma: Code(s): D25.9 - Leiomyoma of uterus, unspecified Category: Medical Plan: Discussed with the patient the findings on imaging uterine myoma possible leiomyoma & the risk of myosarcoma; in addition reviewed with the patient that malignancy and pre malignancy cannot be ruled out without hysterectomy for pathological evaluation ; furthermore, explained to the patient the limitation of imaging and endometrial biopsy in the setting. Discussed with the patient the typical symptoms that are caused by myomas. In addition discussed with the patient options of treatment for myomas including: Serial imaging periodically to follow-up on the size of the myoma versus definitive surgical treatment including hysterectomy. All pros and cons, risks and benefits of all options were discussed with the patient. The patient understands that delay in surgical treatment in case of myosarcoma can affect her prognosis, after further discussion, the patient decided to think about it and get back to us next visit. Instructions given the patient to schedule a 2 week follow-up appointment (3) Ascites: Code(s): R18.8 - Other ascites Category: Medical Plan: Discussed with the patient the presence of ascites and possibility of malignancy of unknown origin as a cause of her ascites. GI referral placed. Instructions given the patient to call her PCP for further management, the patient has an appointment in a week. Instructed the patient to call our office back in case a referral appointment is not scheduled, missed or canceled so that we will assist on rescheduling another appointment, the patient verbalized understanding agreed with the plan. Orders: Orders MM tomosynthesis screening BI Today Z12.31 - Encounter for screening mammogram for malignant neoplasm of breast AMB Endometrial Biopsy Today R93.89 - Abnormal findings on diagnostic imaging of other specified body structures Referrals Gastroenterology Referral Z12.11 - Encounter for screening for malignant neoplasm of colon Coding Level of Care Code Est Pt Level 3 (74199) Procedure Only Diagnoses Thickened endometrium R93.89 Uterine myoma D25.9 Ascites R18.8 CPT Codes Endometrial Biopsy - CPT: 32167-[id number] Biopsy ([id number])
--- OUTSIDE RECORDS SUMMARY | 2025-07-13 11:42 | XMS_ITS | Clinical Summary ---
Author Organization [facility] Address [address] [place] [address] Phone Care Team Providers Care Special Effects Specialist Name Role Phone Marialuisa Jarvis MD Unavailable Marialuisa Jarvis MD Primary Care Provider Marialuisa Jarvis MD Unavailable Encounters Date Type Department Care Team Description 05/05/2025 [facility] RISK SCORES SYSTEM GENERATED External System Generated Encounter [address] [place] [id number] Unknown, Unknown, 04/18/2025 [facility] RISK SCORES SYSTEM GENERATED External System Generated Encounter [address] [place] [id number] Unknown, Unknown, from Last 3 Months Social [...] file Medical Devices Not on file Insurance [facility] ACO [facility] ACO [facility] A[facility] Care Teams Special Effects Specialist Relationship Specialty Start Date End Date Marialuisa Jarvis MD PCP - General Family Medicine 01/16/22 Marialuisa Jarvis MD Primary Care Physician 10/18/17 Marialuisa Jarvis MD [address] [place] [phone] Insurance Assigned Provider 06/04/25 Additional Source Comments The information contained in this document represents components of the legal health record. It is not the complete legal health record.[facility]
[2025-07-13 11:43] VITALS: BP 154/100; BMI 23.4
== END 2025-07-13 12:13 | disposition home or self-care (01) ==
LOC: HO.HWS 11:38
PROVIDERS: PCP Family Medicine; Visit Provider Obstetrics & Gynecology
DX: R93.89 Abnormal findings on diagnostic imaging of other specified body structures (principal); D25.9 Leiomyoma of uterus, unspecified; R18.8 Other ascites
CPT/HCPCS: 58100; 99213

== ENCOUNTER 2025-07-20 11:17 | Outpatient (REF) | payer MEDICAID, SELFPAY ==
--- NOTE | ~2025-07-20 | XR_ITS ---
EXAMINATION: XR CHEST CLINICAL INFORMATION: C54.1 - Malignant neoplasm of endometrium COMPARISON: None available. TECHNIQUE: 2 views of the chest were obtained. FINDINGS: The cardiac, hilar, and mediastinal contours are normal. The lungs are clear bilaterally. There is no pneumothorax or pleural effusion. There is no focal osseous or soft tissue abnormality. XR/XR chest 2V IMPRESSION: Normal chest. Electronically signed by: Facundo Frederick MD 07/20/2025 01:03 PM PAUL[facility]
[2025-07-20 14:08] LABS: Blood Urea Nitrogen 15 mg/dL (9-16); Estimated Glomerular Filt Rate 57
[2025-07-22 10:39] LABS: CA-125 779 U/mL (<35)
== END 2025-07-20 11:18 | disposition home or self-care (01) ==
LOC: HO.XRAY 11:17
PROVIDERS: PCP Family Medicine; Visit Provider Obstetrics & Gynecology
DX: C54.1 Malignant neoplasm of endometrium (principal)
CPT/HCPCS: 36415; 71046; 82565; 84520; 86304; 99212

== ENCOUNTER 2025-07-20 11:17 | Outpatient (AMB) | payer MEDICAID, SELFPAY ==
[2025-07-20 11:18] VITALS: BP 148/90; BMI 23.4
--- NOTE | 2025-07-20 11:18 | MHC.OFFVIS ---
Vital Signs 07/20/25 11:18 Height 5 ft 6 in Weight 145 lb BMI 23.4 BP 148/90 H Intake Visit Reasons: EMB results Communication Engineer Required: Yes Communication Engineer Language: [employer] Media Specialist Services: Communication Engineer Present (in person) Communication Engineer Name: Kaitlin CASIANO Information Interpreted: non-clinical & clinical Accompanied by: Spouse Allergies No Known Allergies Allergy (Verified 07/20/25 11:19) Post menopausal: Yes HPI Comments Details: Presenting for follow-up post EMB Endometrial biopsy pathology still pending preliminary read by Dr. Walker shows worrisome atypical glandular epithelial cells present studies are sent out to rule out serous carcinoma PFSH Medical History (Updated 07/20/25 @ 11:58 by Karsten Latif MD) Hypothyroidism Hyperlipidemia Surgical History (Updated 07/13/25 @ 11:47 by Kaitlin Montero CMA) Hx of section Family History (Updated 07/13/25 @ 11:48 by Kaitlin Montero CMA) Mother Diabetes Brother Thyroid cancer Social History (Updated 07/13/25 @ 11:49 by Kaitlin Montero CMA) Household Members: Spouse Housing: Apartment Alcohol intake: former Patient Tobacco Use Status: Former Tobacco user Tobacco use type: Cigarette Years Smoked: 3 Current occupational status: disabled Sexual orientation: Straight/Heterosexual Gender identity: Female Review of Systems Const All systems reviewed & are unremarkable except as noted in HPI and below Reports as per HPI and Reports no additional complaints GI Reports no additional complaints Reports no additional complaints Physical Exam Vital Signs: Last Vital Signs BP 148/90 H 07/20/25 11:18 BMI result Body Mass Index 23.4 Assessment & Plan Assessment & Plan (1) Endometrial ca: Comment: possible serous, final pathology pending Code(s): C54.1 - Malignant neoplasm of endometrium Category: Medical Plan: Discussed with the patient the preliminary pathology read 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 Will refer to Gyne Onc, CT scan of abdomen and pelvis with IV and oral contrast, chest x-ray and CA 125 ordered. Instructions given the patient is schedule a follow-up appointment within 3 days to discuss the results . Appointment scheduled at [facility] executive administrative asst Oncology with Dr. Haynes on 08/09 at 10:00, the patient is aware Instructed the patient to call our office back in case a referral appointment is not scheduled, missed or canceled so that we will assist on rescheduling another appointment, the patient verbalized understanding agreed with the plan. Orders: Orders CA-125 Today C54.1 - Malignant neoplasm of endometrium XR chest 2V Today C54.1 - Malignant neoplasm of endometrium CT abdomen pelvis wo/w IV con Today C54.1 - Malignant neoplasm of endometrium Creatinine Today C54.1 - Malignant neoplasm of endometrium Blood Urea Nitrogen Today C54.1 - Malignant neoplasm of endometrium Referrals Gynecologic Oncology Referral C54.1 - Malignant neoplasm of endometrium Coding Level of Care Code Est Pt Level 3 (56529) Diagnoses Endometrial ca C54.1
--- OUTSIDE RECORDS SUMMARY | 2025-07-20 12:52 | XMS_ITS | Encounter Summary ---
Author Organization [facility] Address [address] [facility] [address] [place] [address] Phone Care Team Providers Care Auto Body Mechanic Name Role Phone Marialuisa Jarvis MD Unavailable [phone] Marialuisa Jarvis MD Primary Care Provider [phone] Marialuisa Jarvis MD Unavailable [phone] Encounter Details Date Type Department Care Team (Late st Contact Info) Description 07/20/2025 Hospital Encounter [facility] [address] [place] [id number] Edward Escamilla MD [address] [place] [address] [email or web address] Social History Tobacco Use Types Packs/Day Years [...] on file Sexual Orientation Not on file documented as of this encounter Plan of Treatment Scheduled Procedures Name Priority Associated Diagnoses Date/Ti me ULTRASOUND GUIDED PARACENTESIS IR Other ascites documented as of this encounter Visit Diagnoses Not on filedocumented in this encounter Care Teams Auto Body Mechanic Relationship Specialty Start Date End Date Marialuisa Jarvis MD [email or web address] PCP - General Family Medicine 01/16/22 Marialuisa Jarvis MD Primary Care Physician 10/18/17 Marialuisa Jarvis MD [address] [place] [id number] [email or web address] Insurance Assigned Provider 06/04/25 documented as of this encounter Additional Source Comments The information contained in this document represents components of the legal health record. It is not the complete legal health record.[facility]
--- OUTSIDE RECORDS SUMMARY | 2025-07-20 12:52 | XMS_ITS | Clinical Summary ---
Author Organization [facility] Address [address] [place] [address] Phone Care Team Providers Care Urban Planner Name Role Phone Marialuisa Jarvis MD Unavailable Marialuisa Jarvis MD Primary Care Provider Marialuisa Jarvis MD Unavailable [phone] Encounters Date Type Department Care Team Description 07/20/2025 Hospital Encounter [facility] [address] [place] [address] Edward Escamilla MD 07/20/2025 Procedure Pass [facility] [address] [place] [address] 05/05/2025 [facility] RISK SCORES SYSTEM GENERATED External System Generated Encounter [address] [place] [address] Unknown, Unknown, from Last 3 Months Social [...] Orientation Not on file Plan of Treatment Scheduled Procedures Name Priority Associated Diagnoses Date/Ti me ULTRASOUND GUIDED PARACENTESIS IR Other ascites Medical Devices Not on file [place] [address] [place] [address] [place] [id number] [facility] Care Teams Urban Planner Relationship Specialty Start Date End Date Marialuisa Jarvis MD PCP - General Family Medicine 01/16/22 Marialuisa Jarvis MD Primary Care Physician 10/18/17 Marialuisa Jarvis MD [address] [place] [id number] [email or web address] Insurance Assigned Provider 06/04/25 Additional Source Comments The information contained in this document represents components of the legal health record. It is not the complete legal health record.[facility]
--- OUTSIDE RECORDS SUMMARY | 2025-07-20 12:52 | XMS_ITS | Encounter Summary ---
Author Organization [facility] Address [address] [facility] [address] [place] [address] Phone Care Team Providers Care Syrup Filterer Name Role Phone Marialuisa Jarvis MD Unavailable [phone] Marialuisa Jarvis MD Primary Care Provider [phone] Marialuisa Jarvis MD Unavailable [phone] Encounter Details Date Type Department Care Team (Late st Contact Info) Description 07/20/2025 Procedure Pass [facility] [address] [place] [address] Social History Tobacco Use Types Packs/Day Years [...] on filedocumented in this encounter Care Teams Syrup Filterer Relationship Specialty Start Date End Date Marialuisa Jarvis MD PCP - General Family Medicine 01/16/22 Marialuisa Jarvis MD Primary Care Physician 10/18/17 Marialuisa Jarvis MD [address] [place] [phone] Insurance Assigned Provider 06/04/25 documented as of this encounter Additional Source Comments The information contained in this document represents components of the legal health record. It is not the complete legal health record.[facility]
== END 2025-07-20 12:19 | disposition home or self-care (01) ==
LOC: HO.HWS 11:17
PROVIDERS: PCP Family Medicine; Visit Provider Obstetrics & Gynecology
DX: C54.1 Malignant neoplasm of endometrium (principal)
CPT/HCPCS: 99213

== ENCOUNTER → 2025-07-20 12:13 | Outpatient (BNV) | payer MEDICAID, SELFPAY | PROVIDERS: PCP Family Medicine; Visit Provider Radiology Diagnostic Radiology | DX: R11.10 Vomiting, unspecified (principal); C54.1 Malignant neoplasm of endometrium | CPT/HCPCS: 71046 ==